=== PATIENT | male | born 1980 | race Caucasian/White ===

== ENCOUNTER → 2016-12-13 | Outpatient (CLI) | payer OTHER ==
--- NOTE | ~2016-12-13 | US5 ---
[facility] A Service of [facility] RADIOLOGY TEXT RESULTS PATIENT: EMMANUELLE CAMARA III LOCATION: [place] : 78 UNIT #: [id number] AGE: [address]: Roxy Dykes APRN SEX: M ORDER DR: [id number] [facility] [address] [place], [place] [address] [id number] O MR#: [id number] #: [id number] NAME: EMMANUELLE CAMARA : 1980 SEX: M STUDY DATE/TIME: 12/13/2016 10:23 UNIT: CGUS ROOM: STUDY DESCRIPTION: US Abdominal Complete Attending Physician: Roxy Dykes Aprn Referring Physician: Roxy Dykes Aprn Ordering Physician: Roxy Dykes Aprn Primary Care Physician: Bobbi Steiner M.D. MEDICAL IMAGING REPORT This report is preliminary unless electronic signature is present EXAM Abdominal ultrasound INDICATIONS Right lower quadrant abdominal pain for the past several months. Generalized abdominal distension and pain for the past several months. PROCEDURE Reyes-scale and Doppler imaging of the abdomen COMPARISON None FINDINGS Visualized portions of the pancreas are unremarkable. Common duct measures 4 mm. Unremarkable gallbladder. The abdominal aorta inferior vena cava are unremarkable. Right kidney measures 11.5 cm. Liver measures 15.2 cm in length. Left kidney measures 11.4 cm in length. Spleen measures 9.7 cm. IMPRESSION Negative abdominal ultrasound Dictated by... Maximo Coon M.D. THIS IS AN ELECTRONICALLY VERIFIED REPORT Maximo Coon M.D. at 12/14/2016 10:46 AM PAMELLA/una TD: 12/13/2016 13:29 JOB #: [id number] [facility] A Service [facility] RADIOLOGY TEXT RESULTS PATIENT: EMMANUELLE CAMARA III LOCATION: [facility] : 78 UNIT #: [id number] AGE: [address]: Roxy Dykes APRN SEX: M ORDER DR: MEDICAL IMAGING REPORT Page 1 of 1 COPY
== END | disposition home or self-care (01) ==
LOC: CGUS 10:00
DX: R10.31 Right lower quadrant pain (principal); R19.03 Right lower quadrant abdominal swelling, mass and lump; F10.10 Alcohol abuse, uncomplicated
CPT/HCPCS: 76700